=== PATIENT | male | born 1995 | race Caucasian/White ===

== ENCOUNTER 2018-10-06 22:35 | Emergency (ER) | payer OTHER ==
--- NOTE | 2018-10-06 23:09 | ED ---
Throat Pain/Nasal Congestion - HPI Summary HPI Summary: Patient complains of blurred vision in right eye times a few days. States symptoms are constant, progressive, new onset. Denies trauma, ocular discharge , ocular pain, fever, cough, sore throat. Patient states he went to [facility] and they would not dilate his eye for exam. Patient asking for referral to ophthalmology. Patient wears glasses for distance while driving. Medical history is none. - History of Current Complaint Chief Complaint: EDEyeProblem Time Seen by Provider: 10/06/18 22:49 Hx Obtained From: Patient Onset/Duration: Gradual Onset, Lasting Days Severity: Mild Cough: None - Allergies/Home Medications Allergies/Adverse Reactions: Allergies Allergy/AdvReac Type Severity Reaction Status Date / Time No Known Allergies Allergy Verified 10/06/18 22:40 Home Medications: Home Medications NK [No Home Medications Reported] 10/06/18 [History Confirmed 10/06/18] PMH/Surg Hx/FS Hx/Imm Hx Endocrine/Hematology History: Denies: Hx Anticoagulant Therapy Cardiovascular History: Denies: Hx Cardiac Arrest History: Denies: Hx Dialysis Sensory History: Denies: Hx Eye Prosthesis EENT History: Denies: Hx Deafness Neurological History: Denies: Hx Developmental Delay Infectious Disease History: No Infectious Disease History: Denies: Traveled Outside the [place] in Last 30 Days - Family History Known Family History: Positive: Unknown - Social History Occupation: Student Alcohol Use: Occasionally Hx Substance Use: No Hx Tobacco Use: No Review of Systems Constitutional: Negative Positive: Blurred Vision ENT: Negative Cardiovascular: Negative Respiratory: Negative Gastrointestinal: Negative Genitourinary: Negative Musculoskeletal: Negative Skin: Negative Neurological: Negative Psychological: Normal All Other Systems Reviewed And Are Negative: Yes Physical Exam - Summary Physical Exam Summary: EOMI bilaterally. Patient refused ultraviolet light exam. Visual acuity 20/ 25. PERRL. no obvious deformity or trauma to eyes. Neuro exam normal. Triage Information Reviewed: Yes Vital Signs On Initial Exam: Initial Vitals Temp Pulse Resp BP Pulse Ox 97.8 F 64 16 148/90 100 10/06/18 22:37 10/06/18 22:37 10/06/18 22:37 10/06/18 22:37 10/06/18 22:37 Vital Signs Reviewed: Yes Appearance: Positive: Well-Appearing Skin: Positive: Warm Head/Face: Positive: Normal Head/Face Inspection Eyes: Positive: Normal ENT: Positive: Normal ENT inspection Neck: Positive: Supple Respiratory/Lung Sounds: Positive: Clear to Auscultation Cardiovascular: Positive: Normal Abdomen Description: Positive: Nontender Musculoskeletal: Positive: Normal Neurological: Positive: Normal Psychiatric: Positive: Normal AVPU Assessment: Alert - Dominick Coma Scale Best Eye Response: 4 - Spontaneous Best Motor Response: 6 - Obeys Commands Best Verbal Response: 5 - Oriented Coma Scale Total: 15 Diagnostics - Vital Signs Vital Signs Temp Pulse Resp BP Pulse Ox 10/06/18 22:37 97.8 F 64 16 148/90 100 - Laboratory Lab Statement: Any lab studies that have been ordered have been reviewed, and results considered in the medical decision making process. EENT Course/Dx - Course Course Of Treatment: Patient complains of blurred vision in right eye times a few days. States symptoms are constant, progressive, new onset. Denies trauma , ocular discharge, ocular pain, fever, cough, sore throat. Patient states he went to [facility] and they would not dilate his eye for exam. Patient asking for referral to ophthalmology. Patient wears glasses for distance while driving. Medical history is none. Physical exam:EOMI bilaterally. Patient refused ultraviolet light exam. Visual acuity 20/25. PERRL. no obvious deformity or trauma to eyes. Neuro exam normal. Patient given recommendation for Dr. Gamez ophthalmology. Advised to follow-up tomorrow. - Diagnoses Provider Diagnoses: Blurred vision, right eye Discharge - Sign-Out/Discharge Documenting (check all that apply): Patient Departure - Discharge Plan Condition: Stable Disposition: HOME Patient Education Materials: Blurred Vision (ED) Referrals: Gino Gamez MD [Medical Doctor] - Additional Instructions: Follow-up with ophthalmology tomorrow morning. Return to the ED for any new or worsening symptoms. - Billing Disposition and Condition Condition: STABLE Disposition: Home
[2018-10-06 23:24] VITALS: BP 0/0
== END 2018-10-06 23:23 | disposition home or self-care (01) ==
LOC: ED 22:35
DX: H53.8 Other visual disturbances (principal)
CPT/HCPCS: 99281